=== PATIENT | female | born 1960 | race Asian ===

== ENCOUNTER 2023-08-19 13:01 | Emergency (ER) | payer MEDICAID, OTHER ==
[~2023-08-19] VITALS: Ht 167.6 cm; Wt 60.0 kg
[2023-08-19 13:07] VITALS: BP 137/78; PULSE 79; RESP 18; TEMP 98.4; O2SAT 97
[2023-08-19] MEDS ORDERED: CYCL10TA21 MT (14:28)
== END 2023-08-19 15:16 | disposition home or self-care (01) ==
LOC: ER 13:01
DX: S16.1XXA Strain of muscle, fascia and tendon at neck level, initial encounter (principal); S39.012A Strain of muscle, fascia and tendon of lower back, initial encounter; W50.1XXA Accidental kick by another person, initial encounter; Y93.89 Activity, other specified; Y92.89 Other specified places as the place of occurrence of the external cause; Y99.8 Other external cause status
CPT/HCPCS: 72040; 72100; 99284